=== PATIENT | male | born 1970 | race Caucasian/White ===

== ENCOUNTER 2016-11-07 18:14 | Emergency (ER) | payer MEDICARE ==
--- NOTE | 2016-11-07 21:24 | Emergency Department Report ---
ED General Adult HPI - General Chief complaint: Rectal Pain Stated complaint: HEMMORIODAL INFECTION Source: patient Mode of arrival: Ambulatory Limitations: No Limitations - History of Present Illness Initial comments: 46 year old male presents to ED with rectal pain and minimal rectal bleeding noticed on toilet tissue during bowel movements. patient states he also noticed yellow pus drainage earlier today prompting his ED visit and states that he had an abscess in his rectum area that has now resolved. patient states he has history of hemorrhoids. Patient is stable, neurologically intact and in no acute distress. -: Gradual Location: buttocks Radiation: non-radiation Consistency: intermittent Improves with: none Worsens with: other (bowel movements) Associated Symptoms: denies: nausea/vomiting Treatments Prior to Arrival: none - Related Data Home Medications Medication Instructions Recorded Confirmed Last Taken Cyclobenzaprine [Flexeril] 10 mg PO QHS PRN 06/11/15 06/11/15 06/11/15 05:30 Emtricita/Rilpiviri/Tenofo(Nf) 1 each PO QDAY 06/11/15 06/11/15 06/11/15 07:00 [Complera (Nf) 200-25-300 mg] Loperamide [Imodium] 2 mg PO Q8H PRN 06/11/15 06/11/15 Unknown Previous Rx's Medication Instructions Recorded Last Taken Type HYDROcodone/APAP 5-325 [[place] 1 each PO Q6HR PRN #14 tablet 06/11/15 Unknown Rx 5/325] Docusate Sodium [Colace] 100 mg PO BID PRN #30 capsule 11/07/16 Unknown Rx Hydrocort/Pramoxine [Proctofoam-Hc] 10 gm [place] QDAY PRN #1 can 11/07/16 Unknown Rx Sulfamethoxazole/Trimethoprim 1 each PO BID #10 tablet 11/07/16 Unknown Rx [Bactrim DS TAB] Allergies Allergy/AdvReac Type Severity Reaction Status Date / Time No Known Allergies Allergy Unverified 06/11/15 08:35 ED Review of Systems ROS: Stated complaint: HEMMORIODAL INFECTION Other details as noted in HPI Constitutional: denies: chills, fever Eyes: denies: eye pain, eye discharge, vision change ENT: denies: ear pain, throat pain Respiratory: denies: cough, shortness of breath, wheezing Cardiovascular: denies: chest pain, palpitations Endocrine: no symptoms reported Gastrointestinal: other (minimal rectal bleeding during bowel movements). denies: abdominal pain, nausea, vomiting, diarrhea, constipation Genitourinary: denies: urgency, dysuria Musculoskeletal: denies: back pain, joint swelling, arthralgia Skin: denies: rash, lesions Neurological: denies: headache, weakness, paresthesias Psychiatric: denies: anxiety, depression Hematological/Lymphatic: denies: easy bruising ED Past Medical Hx - Past Medical History Previous Medical History?: Yes Hx Hypertension: Yes Additional medical history: AIDS. Hemorrhoids - Surgical History Additional Surgical History: HERNIA REPAIR X 2 - Social History Smoking Status: Unknown if ever smoked Substance Use Type: None - Medications Home Medications: Home Medications Medication Instructions Recorded Confirmed Last Taken Type Cyclobenzaprine [Flexeril] 10 mg PO QHS PRN 06/11/15 06/11/15 06/11/15 05:30 History Emtricita/Rilpiviri/Tenofo(Nf) 1 each PO QDAY 06/11/15 06/11/15 06/11/15 07:00 History [Complera (Nf) 200-25-300 mg] HYDROcodone/APAP 5-325 [[place] 1 each PO Q6HR PRN #14 tablet 06/11/15 Unknown Rx 5/325] Loperamide [Imodium] 2 mg PO Q8H PRN 06/11/15 06/11/15 Unknown History Docusate Sodium [Colace] 100 mg PO BID PRN #30 capsule 11/07/16 Unknown Rx Hydrocort/Pramoxine [Proctofoam-Hc] 10 gm [place] QDAY PRN #1 can 11/07/16 Unknown Rx Sulfamethoxazole/Trimethoprim 1 each PO BID #10 tablet 11/07/16 Unknown Rx [Bactrim DS TAB] ED Physical Exam - General Limitations: No Limitations General appearance: alert, in no apparent distress - Head Head exam: Present: atraumatic, normocephalic - Eye Eye exam: Present: normal appearance - ENT ENT exam: Present: mucous membranes moist - Neck Neck exam: Present: normal inspection - Respiratory Respiratory exam: Present: normal lung sounds bilaterally. Absent: respiratory distress - Cardiovascular Cardiovascular Exam: Present: regular rate, normal rhythm. Absent: systolic murmur, diastolic murmur, rubs, gallop - GI/Abdominal GI/Abdominal exam: Present: soft, normal bowel sounds. Absent: distended, tenderness, guarding - Rectal Rectal exam: Present: normal inspection, normal rectal tone, heme (+) stool, hemorrhoids (first degree internal hemorrhoid palpated on rectal exam). Absent : black stool, bloody stool, mass - Extremities Exam Extremities exam: Present: normal inspection, full ROM - Back Exam Back exam: Present: normal inspection, full ROM - Neurological Exam Neurological exam: Present: alert, oriented X3, normal gait - Psychiatric Psychiatric exam: Present: normal affect, normal mood - Skin Skin exam: Present: warm, dry, intact, normal color. Absent: rash ED Course Vital Signs 11/07/16 19:45 Temperature 98.1 F Pulse Rate 89 Respiratory 18 Rate Blood Pressure 151/77 O2 Sat by Pulse 98 Oximetry ED Medical Decision Making - Medical Decision Making 46 year old male presents to ED with hemorrhoids and minimal rectal bleeding during bowel movements noticed on toilet tissue and previous yellow drainage from now resolved abscess. patient will be discharged with RX for stool softners and proctofoam and bactrim. patient has follow up with PCP on November 22 and was notified of importance to keep his appointment with PCP. Critical care attestation.: If time is entered above; I have spent that time in minutes in the direct care of this critically ill patient, excluding procedure time. ED Disposition Clinical Impression: Hemorrhoids Qualifiers: Hemorrhoid type: first degree Qualified Code(s): K64.0 - First degree hemorrhoids Disposition: DISCHARGED TO HOME OR SELFCARE Is pt being admited?: No Does the pt Need Aspirin: No Condition: Stable Instructions: Hemorrhoids (ED) Prescriptions: Docusate Sodium [Colace] 100 mg PO BID PRN #30 capsule PRN Reason: Hemorrhoids Hydrocort/Pramoxine [Proctofoam-Hc] 10 gm [place] QDAY PRN #1 can PRN Reason: Hemorrhoids Sulfamethoxazole/Trimethoprim [Bactrim DS TAB] 1 each PO BID #10 tablet Referrals: PRIMARY CARE, [Primary Care Provider] - 3-5 Days Forms: Work/School Release Form(ED)
[2016-11-07 23:30] VITALS: BP 141/79
== END 2016-11-07 23:30 | disposition home or self-care (01) ==
LOC: ED 18:14
DX: K64.0 First degree hemorrhoids (principal)
CPT/HCPCS: 99282